=== PATIENT | male | born 1985 ===

== ENCOUNTER 2023-07-29 05:51 | Day surgery (SDC) | payer BC, SELFPAY ==
[2023-07-29] VITALS (19 sets, daily range): BP systolic 155–189; BP diastolic 103–128; BMI 31.5
[2023-07-29] MEDS: NORMOSOL-R 1000 IV (08:07)
[2023-07-29] MEDS: Pyridium 200 MG PO (10:28)
[2023-07-29] MEDS: APRESOLINE 5 MG IV ×3 (10:31→10:55)
== END 2023-07-29 12:40 | disposition home or self-care (01) ==
LOC: SDS 05:51
PROVIDERS: ATTENDING PHYSICIAN Specialist
DX: N13.30 Unspecified hydronephrosis (principal); R31.29 Other microscopic hematuria
CPT/HCPCS: 52332; 74420; 76000; C1758; C2617

== ENCOUNTER → 2023-08-24 10:27 | Outpatient (REF) | payer BC, SELFPAY | LOC: RAD 10:27 | PROVIDERS: ATTENDING PHYSICIAN Specialist | DX: N13.30 Unspecified hydronephrosis (principal) | CPT/HCPCS: 78708; A9539 ==

== ENCOUNTER → 2024-01-03 10:06 | Outpatient (REF) | payer BC, SELFPAY | LOC: RAD 10:06 | PROVIDERS: FAMILY PHYSICIAN Family Medicine; OTHER PHYSICIAN Urology | DX: N13.5 Crossing vessel and stricture of ureter without hydronephrosis (principal) | CPT/HCPCS: 78708; A9539 ==